=== PATIENT | female | born 1980 | race Caucasian/White ===

== ENCOUNTER 2016-09-21 16:28 | Emergency (ER) | payer BC ==
--- NOTE | 2016-09-21 17:05 | UC ---
Lower Extremity/Ankle HPI - HPI Summary HPI Summary: Itchy red blistered and weepy rash on L leg over knee. Does yard work daily and thinks she got into poison eliecer. Has been using calamine lotion with some relief , is concerned about level of swelling at this point. - History of Current Complaint Chief Complaint: UCSkin Stated Complaint: POISON ELIEECR Time Seen by Provider: 09/21/16 16:55 Hx Obtained From: Patient Hx Last Menstrual Period: 08/28/16 ?: No Onset/Duration: Gradual Onset, Lasting Days Severity Initially: Mild Severity Currently: Moderate Aggravating Factor(s): Nothing Alleviating Factor(s): Rest, Elevation Able to Bear Weight: Yes - Allergies/Home Medications Allergies/Adverse Reactions: Allergies Allergy/AdvReac Type Severity Reaction Status Date / Time No Known Allergies Allergy Verified 09/21/16 16:47 Home Medications: Home Medications Loratadine [Claritin 10 MG CAP] 10 mg PO PRN 09/21/16 [History] Multiple Vitamins W/ Minerals [Multivitamin Adult] 1 tab PO DAILY 09/21/16 [ History Confirmed 09/21/16] PMH/Surg Hx/FS Hx/Imm Hx Previously Healthy: Yes Endocrine History Of: Denies: Diabetes, Thyroid Disease Cardiovascular History Of: Denies: Cardiac Disorders, Hypertension Respiratory History Of: Denies: COPD, Asthma GI/ History Of: Denies: Ulcer - Surgical History Surgical History: None - Family History Known Family History: Negative: Blood Disorder - Social History Lives: With Family Alcohol Use: Occasionally Substance Use Type: None Smoking Status (MU): Never Smoked Tobacco Review of Systems Constitutional: Negative Skin: Rash Eyes: Negative ENT: Negative Respiratory: Negative Cardiovascular: Negative Gastrointestinal: Negative Genitourinary: Negative Motor: Negative Neurovascular: Negative Musculoskeletal: Negative Neurological: Negative Psychological: Negative All Other Systems Reviewed And Are Negative: Yes Physical Exam Triage Information Reviewed: Yes Appearance: Well-Appearing, No Pain Distress, Well-Nourished Vital Signs: Initial Vital Signs Temp 99.3 F 09/21/16 16:41 Pulse 85 09/21/16 16:41 Resp 18 09/21/16 16:41 BP 128/72 09/21/16 16:41 Pulse Ox 99 09/21/16 16:41 Vital Signs Reviewed: Yes Eye Exam: Normal Eyes: Positive: Conjunctiva Clear ENT Exam: Normal ENT: Positive: Normal ENT inspection, Hearing grossly normal, Pharynx normal, TMs normal Dental Exam: Normal Neck exam: Normal Neck: Positive: Supple, Nontender, No Lymphadenopathy Respiratory Exam: Normal Respiratory: Positive: Chest non-tender, Lungs clear, Normal breath sounds, No respiratory distress, No accessory muscle use Cardiovascular Exam: Normal Cardiovascular: Positive: RRR, No Murmur Musculoskeletal Exam: Normal Neurological Exam: Normal Neurological: Positive: Alert Psychological Exam: Normal Skin Exam: Other - raised, swollen, blistered confluent irreg rash on L anterior medial leg from mid thigh to upper castillo. Some open excoriations. Lower Extremity Course/Dx - Differential Dx/Diagnosis Provider Diagnoses: contact dermatitis. elevated blood pressure due to discomfort. Discharge - Discharge Plan Condition: Stable Disposition: HOME Prescriptions: predniSONE TAB* [Deltasone TAB*] 50 mg PO DAILY #5 tab Patient Education Materials: Contact Dermatitis (ED) Additional Instructions: Please come back right away if you have spreading redness or increasing pain.
== END 2016-09-21 17:04 | disposition home or self-care (01) ==
LOC: UCEAST 16:28
DX: L25.9 Unspecified contact dermatitis, unspecified cause (principal); R03.0 Elevated blood-pressure reading, without diagnosis of hypertension
CPT/HCPCS: 99202; G0463

== ENCOUNTER 2019-05-08 11:22 | Emergency (ER) | payer BC, OTHER ==
[2019-05-08 12:16] VITALS: BP 114/70
--- NOTE | 2019-06-07 13:59 | UC ---
Ear Complaint HPI - HPI Summary HPI Summary: L ear clogged intermittently x2 wks. recent sniffles but no illness. - History of Current Complaint Chief Complaint: UCEar Stated Complaint: EAR CLOGGED Time Seen by Provider: 05/08/19 12:25 Hx Obtained From: Patient Hx Last Menstrual Period: 08/28/16 Pain Intensity: 0 Pain Scale Used: 0-10 Numeric Aggravating Factors: Nothing Alleviating Factors: Nothing - Allergies/Home Medications Allergies/Adverse Reactions: Allergies Allergy/AdvReac Type Severity Reaction Status Date / Time No Known Allergies Allergy Verified 05/08/19 12:15 PMH/Surg Hx/FS Hx/Imm Hx Previously Healthy: Yes - Surgical History Surgical History: Yes Surgery Procedure, Year, and Place: knee surgery - Family History Known Family History: Negative: Blood Disorder - Social History Alcohol Use: Weekly Substance Use Type: None Smoking Status (MU): Never Smoked Tobacco Review of Systems All Other Systems Reviewed And Are Negative: Yes Constitutional: Negative: Fever ENT: Positive: Other - L ear clogged. Negative: Sore Throat, Ear Ache, Nasal Discharge, Sinus Congestion Respiratory: Negative: Cough Neurological: Negative: Headache Physical Exam Triage Information Reviewed: Yes Appearance: Well-Appearing Vital Signs: Initial Vital Signs Temp 98.5 F 05/08/19 12:12 Pulse 75 05/08/19 12:12 Resp 18 05/08/19 12:12 BP 114/70 05/08/19 12:12 Pulse Ox 100 05/08/19 12:12 Vital Signs Reviewed: Yes Eyes: Positive: Conjunctiva Clear ENT: Positive: Pharynx normal, TMs normal Ear Complaint Course/Dx - Course Course Of Treatment: L ear feeling of clogged, on exam no evidence of impacted cerumen. Plan is to tx empirically w/ flonase and he should f/u w/ ENT. vitals good. - Differential Dx/Diagnosis Differential Diagnosis/HQI/PQRI: Cerumen Impaction, Foreign Body, Otitis Externa , Otitis Media Provider Diagnosis: Clogged ear Discharge ED - Sign-Out/Discharge Documenting (check all that apply): Patient Departure All imaging exams completed and their final reports reviewed: No Studies - Discharge Plan Condition: Good Disposition: HOME Prescriptions: Fluticasone NASAL SPRAY 50MCG* [Flonase NASAL SPRAY 50MCG*] 2 spray LEFT NARE DAILY 30 Days #1 btl Patient Education Materials: Fluticasone (Into the nose) Referrals: Nicho Rodriguez MD [Medical Doctor] - Additional Instructions: If not improving after 1 month please go to ENT - Billing Disposition and Condition Condition: GOOD Disposition: Home
== END 2019-05-08 12:58 | disposition home or self-care (01) ==
LOC: UCEAST 11:22
DX: H93.8X2 Other specified disorders of left ear (principal)
CPT/HCPCS: 99212; G0463